=== PATIENT | male | born 1995 | race Caucasian/White ===

== ENCOUNTER 2019-02-05 12:15 | Emergency (ER) | payer SELFPAY ==
[2019-02-05 12:16] VITALS: BP 126/90; PULSE 80; PULSE 85; RESP 14; RESP 17; TEMP 36.8; O2SAT 100; BMI 23.1
--- NOTE | 2019-02-05 12:24 | RAD_ITS ---
STUDY: X-RAY - RIGHT ANKLE REASON FOR EXAM: Male, 23 years old. Injury. TECHNIQUE: 3 view(s) of the ankle. COMPARISON: None. FINDINGS: I suspect a nondisplaced fracture along the posterior malleolus of the distal tibia. Normal medial and lateral malleoli. Normal tibiotalar articulation and ankle mortise. Normal visualized talus and calcaneus. Old avulsion fracture of the dorsal aspect of the talus. The visualized subtalar, talonavicular, calcaneocuboid and tarsal articulations are normal. Soft tissue swelling. RAD/Ankle min 3 Views IMPRESSION: Nondisplaced fracture of the posterior malleolus of the distal tibia. Soft tissue swelling. Electronically Signed: Michael Bruce, at 12:59 EDT , Service support ,
--- NOTE | 2019-02-05 12:24 | RAD_ITS ---
STUDY: X-RAY - LEFT FOOT CLINICAL: Male, 23 years old. History of injury. TECHNIQUE: 3 view(s) of the foot. COMPARISON: None. FINDINGS: Normal talus, calcaneus, and tarsal bones. Normal visualized subtalar, talonavicular, calcaneocuboid, tarsal and tarsometatarsal articulations. Normal metatarsi. Normal metatarsophalangeal joint of the great toe. Normal tibial and fibular sesamoid bones. Normal interphalangeal joint of the great toe. Normal phalanges of the great toe. Normal second through fifth metatarsophalangeal joints. Normal interphalangeal joints and phalanges of the lesser toes. The soft tissue structures are unremarkable. RAD/Foot min 3 Views IMPRESSION: Normal x-ray examination of the foot. Electronically Signed: Michael Bruce, at 12:57 EDT , Service support ,
--- NOTE | 2019-02-05 12:24 | CT_ITS ---
STUDY: CT ABDOMEN AND PELVIS WITH CONTRAST REASON FOR EXAM: Male, 23 years old. History of abdominal trauma. RADIATION DOSAGE (If Supplied By Facility): CTDIvol = ( 9.53 ) mGy, DLP = ( 902.10 ) mGycm TECHNIQUE: Transaxial images were obtained from the dome of the diaphragm to the symphysis pubis without oral contrast. IV Isovue 300 100 was administered. Sagittal and coronal images were reconstructed. Individualized dose optimization techniques were used for this CT. COMPARISON: None. FINDINGS: The visualized lung bases are unremarkable. The visualized portions of the heart are within normal limits. Normal liver. Normal gallbladder and extrahepatic biliary system. Normal spleen. Normal pancreas. Normal bilateral adrenal glands. Normal right kidney. Normal left kidney. Normal visualized stomach. Normal small intestine. Normal colon. The appendix is visualized and appears normal. Normal abdominal aorta. Normal inferior vena cava. Normal retroperitoneum. Normal urinary bladder. Normal abdominal wall. Normal osseous structures. CT/Abdomen/Pelvis WITH Contrast IMPRESSION: Normal enhanced CT of the abdomen and pelvis. Electronically Signed: Michael Bruce, at 12:55 EDT , Service support ,
--- NOTE | 2019-02-05 12:28 | ED.VISSUMM ---
- ER Visit Summary Date of Service: 02/05/19 Chief Complaint: Foot and back injury History of Present Illness: The patient is a 23 M who presents with injuries to his feet and back. He was in a front end notched blade loader when it started to tip over so he jumped out. The tractor then hit him in the back and he twisted his ankle when he jumped. His left foot was pinned underneath the tractor but he states he is having no pain in that area. Pain on his right ankle is worse when he walks. He is on no medications at home. The pain is in the left side of his back in the midportion. Is worse when he twists. He denies any anterior chest pain. No abdominal pain. Denies any head trauma or neck pain. Physical Examination: Vital signs reviewed. HEENT exam is atraumatic. Heart is regular rate and rhythm. Lungs are clear to auscultation. He has no chest tenderness. He has no abdominal tenderness. He has left thoracic paraspinal tenderness where there are multiple abrasions in this area. He has tenderness in the right lateral and medial malleoli or areas. He has no left foot tenderness. His GCS is 15. Neurologic exam normal. Test Results: CAT scan of the abdomen pelvis reveals some soft tissue contusion-like changes but no acute other injuries. Left foot x-ray normal. Right ankle x-ray reveals a posterior malleolus fracture Emergency Department Course and Treatment: Patient will be put in a walking boot given crutches. In a nonweightbearing. I will give him orthopedic follow-up and he will take NSAIDs for pain at home. Treatment Plan: [] Disposition: Discharge Impression: Right posterior malleolus fracture, back contusion This note was generated with [employer] dictation software. It may contain incorrect words, spelling, and punctuation that were not noted in review of the chart prior to signing ED Disposition - Plan for ED Patient: Referrals: Darian Cottrell DO [Primary Care Provider] -
--- NOTE | 2019-02-05 13:14 | ED.DEP ---
ED Disposition - Plan for ED Patient: Disposition: Home or Assisted Living Instructions: FRACTURE, Ankle (General) Referrals: Darian Cottrell DO [Primary Care Provider] - Iglesia Sanchez DO [STAFF PHYSICIAN] -
[2019-02-05 13:50] VITALS: BP 124/78; PULSE 91; RESP 16; O2SAT 100
== END 2019-02-05 13:50 | disposition home or self-care (01) ==
PROVIDERS: Emergency Provider Emergency Medicine; Family Provider Family Medicine; PCP Family Medicine
DX: S82.54XA Nondisplaced fracture of medial malleolus of right tibia, initial encounter for closed fracture (principal); S20.222A Contusion of left back wall of thorax, initial encounter; V84.6XXA Passenger of special agricultural vehicle injured in nontraffic accident, initial encounter; X50.1XXA Overexertion from prolonged static or awkward postures, initial encounter; Y93.39 Activity, other involving climbing, rappelling and jumping off; Y92.9 Unspecified place or not applicable
CPT/HCPCS: 73610; 73630; 74177; 99284; Q9967; A4216

== ENCOUNTER → 2019-03-08 08:12 | Outpatient (CLI) | payer SELFPAY ==
[2019-02-08 08:13] VITALS: BMI 23.1
--- NOTE | 2019-03-08 08:14 | RAD_ITS ---
STUDY: X-RAY - RIGHT ANKLE REASON FOR EXAM: Male, 23 years old. Follow-up of right-sided ankle fracture. TECHNIQUE: 3 view(s) of the ankle. COMPARISON: Radiographs of the right ankle dated March 08, 2019. FINDINGS: There is a fracture of the posterior tibial malleolus which is more obvious on the previous study suggesting healing. Normal medial and lateral malleoli. Normal tibiotalar articulation and ankle mortise. Normal visualized talus and calcaneus. Intertarsal articulations are within normal limits. Visualized tarsal bones and metatarsals have a normal appearance. There is mild soft tissue swelling. RAD/Ankle min 3 Views IMPRESSION: Apparent healing of fracture of the posterior tibial malleolus. Electronically Signed: Keisha Kahn MD at 7:21 EST , Service support ,
== END ==
PROVIDERS: Family Provider Family Medicine; PCP Family Medicine; Referring Provider Orthopaedic Surgery; Visit Provider Orthopaedic Surgery
DX: S82.391A Other fracture of lower end of right tibia, initial encounter for closed fracture (principal)
CPT/HCPCS: 73610